=== PATIENT | female | born 1990 | race African-American/Black ===

== ENCOUNTER 2017-09-27 18:06 | Emergency (ER) | payer OTHER ==
[2017-09-27 18:11] VITALS: TEMP 98.1; BMI 36.9
--- NOTE | 2017-09-27 18:55 | PDOC ---
History of Present Illness - General Chief Complaint: Vaginal Bleeding Stated Complaint: PAIN Time Seen by Provider: 09/27/17 18:38 History Source: Patient - History of Present Illness Initial Comments: 09/27/17 20:33 27F present with increased vaginal bleeding for the past 2 days, and feels like her IUD is displaced as the strings are within reach now. No intercourse for the past 2 weeks. Last period ended September 03. [facility]. 09/27/17 20:45 09/27/17 20:54 Past History - Past Medical History Allergies/Adverse Reactions: Allergies Allergy/AdvReac Type Severity Reaction Status Date / Time No Known Allergies Allergy Verified 09/27/17 18:11 Home Medications: Ambulatory Orders NK [No Known Home Medication] 09/27/17 COPD: No Other medical history: NONE - Reproductive History Is Patient Now?: No - Suicide/Smoking/Psychosocial Hx Smoking History: Never smoked Hx Alcohol Use: Yes (SOCIAL) Drug/Substance Use Hx: No Substance Use Type: None Review of Systems - Review of Systems Able to Perform ROS?: Yes Constitutional: No: Symptoms Reported HEENTM: No: Symptoms Reported Respiratory: No: Symptoms reported Cardiac (ROS): No: Symptoms Reported ABD/GI: No: Symptoms Reported : No: Burning, Dysuria, Discharge (bloody), Frequency, Flank Pain, Pain, Testicular Mass Musculoskeletal: No: Symptoms Reported Integumentary: No: Symptoms Reported Neurological: No: Symptoms reported All Other Systems: Reviewed and Negative *Physical Exam - Vital Signs Last Vital Signs Temp Pulse Resp BP Pulse Ox 98.1 F 96 H 18 129/75 98 09/27/17 18:06 09/27/17 18:06 09/27/17 18:06 09/27/17 18:06 09/27/17 18:06 - Physical Exam General Appearance: Yes: Nourished, Appropriately Dressed, Obese. No: Apparent Distress HEENT: positive: EOMI, DYLON, Normal ENT Inspection Neck: negative: Tender Respiratory/Chest: positive: Lungs Clear, Normal Breath Sounds. negative: Chest Tender Cardiovascular: positive: Regular Rhythm, Regular Rate, S1, S2 Female Pelvic Exam: positive: normal external exam, normal adnexa, normal size ovaries, vaginal bleeding, other (profuse blood in vaginal wall). negative: cervical os closed (part of IUD showing in OS), CMT, adnexal tenderness Gastrointestinal/Abdominal: positive: Normal Bowel Sounds, Flat. negative: Tender Musculoskeletal: positive: Normal Inspection. negative: CVA Tenderness Extremity: positive: Normal Capillary Refill Integumentary: positive: Normal Color, Dry, Warm Neurologic: positive: Fully Oriented, Alert, Normal Mood/Affect, Normal Response , Motor Strength 02/14 ED Treatment Course - LABORATORY CBC & Chemistry Diagram: 09/27/17 19:10 09/27/17 19:10 Medical Decision Making - Medical Decision Making 09/27/17 23:16 27F with iud placement in december presents with vaginal bleeding/heavy period complaining of possible IUD displacement IUD showing in os during pelvic examination. Removed. Patient will get new placement. Given OBGYN referal. Labs negative for anemia. Patient discharged with referal . *DC/Admit/Observation/Transfer Diagnosis at time of Disposition: Intrauterine device (IUD) migration - Discharge Dispostion Disposition: HOME Condition at time of disposition: Good Admit: No - Referrals Referrals: Lisa Hayward MD [Staff Physician] - - Patient Instructions Printed Discharge Instructions: DI for Intrauterine Device Removal Additional Instructions: Please follow up with OBGYN Dr. Hayward for follow up and insertion of new IUD. Come back to the ED for any new, worsening or concerning symptom. - Post Discharge Activity
[2017-09-27 19:24] LABS: BASOPHIL 3.6 % (0-2.0); EOSINOPHIL 3.8 % (0-4.5); MCH 25.7 pg (25.7-33.7); MCHC 33.3 g/dl (32.0-36.0); MEAN PLT VOLUME 7.6 fl (7.5-11.1); NEUTROPHILS 36.3 % (42.8-82.8); PLATELET COUNT 454 K/MM3 (134-434); RDW 14.9 % (11.6-15.6); WHITE BLOOD COUNT 5.8 K/mm3 (4.0-10.0)
[2017-09-27 19:28] LABS: URINE APPEARANCE SLCLOUDY; URINE BILIRUBIN NEGATIVE (NEGATIVE); URINE BLOOD 3+ (NEGATIVE); URINE COLOR YELLOW; URINE GLUCOSE (UA) NEGATIVE (NEGATIVE); URINE KETONE NEGATIVE (NEGATIVE); URINE LEUK ESTERASE NEGATIVE (NEGATIVE); URINE NITRITE NEGATIVE (NEGATIVE); URINE UROBILINOGEN NEGATIVE mg/dL (0.2-1.0)
[2017-09-27 19:29] LABS: URINE PROTEIN 1+ (NEGATIVE)
[2017-09-27 19:32] LABS: INR 1.1 (0.82-1.09); PROTHROMBIN TIME (PATIENT) 12.4 SEC (9.98-11.88)
[2017-09-27 19:35] LABS: ACTIVATED PTT 33.7 SECONDS (26.9-34.4)
[2017-09-27 19:51] LABS: URINE MUCUS RARE; URINE RBC 146 /hpf (0-3); URINE WBC 2 /hpf (3-5)
[2017-09-27 20:01] LABS: ALBUMIN 3.6 g/dl (3.4-5.0); ANION GAP 6 (8-16); BILIRUBIN,TOTAL 0.3 mg/dL (0.2-1.0); CALCIUM 8.9 mg/dL (8.5-10.1); CO2 27 mmol/L (21-32); CREATININE 0.8 mg/dL (0.55-1.02); GLUCOSE,RANDOM 82 mg/dL (74-106); SGOT/AST 9 U/L (15-37); SGPT/ALT 25 U/L (12-78); TOT PROT 7.4 g/dl (6.4-8.2)
[2017-09-27 20:02] LABS: ALK PHOS 96 U/L (45-117)
--- NOTE | 2017-09-27 20:25 | PDOC ---
Attending Attestation - Resident Resident Name: Elder Alvarez - ED Attending Attestation I have performed the following: I have examined & evaluated the patient, The case was reviewed & discussed with the resident, I agree w/resident's findings & plan - HPI HPI: 09/27/17 20:23 Pt comes with vag bleeding. - Physicial Exam PE: 09/27/17 20:24 agree with resident - Medical Decision Making 09/27/17 20:24 Hb stable. Vitals stable; labs normal. Pt is not . Pt will get sono of pelvis transabd and transvaginal.
[2017-09-27 21:07] VITALS: BP 120/72; PULSE 68
[2017-09-28 00:11] LABS: URINE LEUK ESTERASE Negative (NEGATIVE)
== END 2017-09-27 21:07 | disposition home or self-care (01) ==
LOC: JER 18:06
DX: Z30.431 Encounter for routine checking of intrauterine contraceptive device (principal); T83.89XA Other specified complication of genitourinary prosthetic devices, implants and grafts, initial encounter
CPT/HCPCS: 36415; 80053; 81003; 81015; 84703; 85025; 85610; 85730; 99281-25

== ENCOUNTER 2017-11-19 09:00 | Emergency (ER) | payer OTHER ==
[2017-11-19 09:09] VITALS: BP 115/66; PULSE 91; TEMP 97.7; BMI 39.1
--- NOTE | 2017-11-19 09:44 | PDOC ---
History of Present Illness - General Chief Complaint: Sore Throat Stated Complaint: THROAT PAIN Time Seen by Provider: 11/19/17 09:25 History Source: Patient Exam Limitations: No Limitations - History of Present Illness Initial Comments: 11/19/17 09:42 27 yr female no past medical history with sore throat for 3 days no fever has dry cough . Severity: mild Associated Symptoms: reports: cough. denies: diaphoresis, fever/chills, headaches, loss of appetite, malaise, nausea/vomiting, shortness of breath Past History - Past Medical History Allergies/Adverse Reactions: Allergies Allergy/AdvReac Type Severity Reaction Status Date / Time No Known Allergies Allergy Verified 11/19/17 09:09 Home Medications: Ambulatory Orders NK [No Known Home Medication] 09/27/17 COPD: No - Suicide/Smoking/Psychosocial Hx Smoking History: Never smoked Information on smoking cessation initiated: No Hx Alcohol Use: No Drug/Substance Use Hx: No Substance Use Type: None Review of Systems - Review of Systems Able to Perform ROS?: Yes Is the patient limited Sami proficient: No Constitutional: No: Symptoms Reported HEENTM: Yes: Symptoms Reported Respiratory: Yes: Symptoms reported *Physical Exam - Vital Signs Last Vital Signs Temp Pulse Resp BP Pulse Ox 97.7 F 91 H 17 115/66 99 11/19/17 09:07 11/19/17 09:07 11/19/17 09:07 11/19/17 09:07 11/19/17 09:07 - Physical Exam General Appearance: Yes: Nourished, Appropriately Dressed, Other (well appearing no acute distress) HEENT: positive: EOMI, DYLON, TMs Normal, Pharyngeal Erythema, Tonsillar Erythema. negative: Tonsillar Exudate, Nasal Congestion Neck: positive: Supple. negative: Lymphadenopathy (R), Lymphadenopathy (L) Respiratory/Chest: positive: Lungs Clear, Normal Breath Sounds Cardiovascular: positive: Regular Rhythm, Regular Rate Gastrointestinal/Abdominal: positive: Normal Bowel Sounds, Soft Medical Decision Making - Medical Decision Making 11/19/17 09:43 cc: sore throat neg fever neg abd pain dry cough non toxic will check for strep *DC/Admit/Observation/Transfer Diagnosis at time of Disposition: Sore throat - Discharge Dispostion Disposition: HOME Condition at time of disposition: Good - Referrals Referrals: Jamal James MD [Staff Physician] - - Patient Instructions Additional Instructions: drink pleanty of fluids throat lozengers of your choice take motrin or tylenol for any fever or pain as needed follow with ENT if symptoms worsen or persist - Post Discharge Activity
== END 2017-11-19 10:04 | disposition home or self-care (01) ==
LOC: JERFT 09:00
DX: J02.9 Acute pharyngitis, unspecified (principal)
CPT/HCPCS: 87070; 87077; 87430; 99281-25